=== PATIENT | male | born 1970 | race African-American/Black ===

== ENCOUNTER 2016-11-10 11:32 | Emergency (ER) | payer SELFPAY ==
[2016-11-10 12:54] LABS: Anion Gap 15 mmol/L; BUN/Creatinine Ratio 13.33; Blood Urea Nitrogen 12 mg/dL (9-20); Calcium 9.2 mg/dL (8.4-10.2); Carbon Dioxide 28 mmol/L (22-30); Chloride 99.5 mmol/L (98-107); Glucose 121 mg/dL (75-100); Potassium 4.3 mmol/L (3.6-5.0); Sodium 138 mmol/L (137-145)
--- NOTE | 2016-11-10 12:55 | XRay Report ---
CHEST 2 VIEWS INDICATION: Shortness of breath, central chest pain. COMPARISON: None similar at this institution. FINDINGS: PA and lateral chest radiographs demonstrate normal cardiomediastinal silhouette and clear lungs, given the inspiration. Intact bones. CONCLUSION: No acute disease in the chest. Thank you for the opportunity to participate in this patient's care.
[2016-11-10 12:58] LABS: Albumin 4.3 g/dL (3.9-5); Albumin/Globulin Ratio 1.4 %; Bilirubin,Direct 0.3 mg/dL (0-0.2); Bilirubin,Indirect 0.4 mg/dL; Bilirubin,Total 0.7 mg/dL (0.1-1.2); Total Protein 7.3 g/dL (6.3-8.2)
[2016-11-10 13:24] LABS: Basophils % (Auto) 0.4 % (0.0-1.8); Eosinophils % (Auto) 1.6 % (0.0-4.3); Hematocrit 45.7 % (35.5-45.6); Hemoglobin 15.3 gm/dl (11.8-15.2); Mean Corpuscular HGB Conc 34 % (32-34); Mean Corpuscular Hemoglobin 30 pg (28-32); Mean Corpuscular Volume 89 fl (84-94); Platelet Count 244 K/mm3 (140-440); Red Blood Count 5.15 M/mm3 (3.65-5.03); Red Cell Distribution Width 12.9 % (13.2-15.2); White Blood Count 14.5 K/mm3 (4.5-11.0)
[2016-11-10] MEDS ORDERED: SUBLIMAZE IV ONE (20:51)
[2016-11-10] MEDS ORDERED: ZOFRAN IV ONE (20:51)
[2016-11-10] MEDS ORDERED: PEPCID IV ONE (20:53)
--- NOTE | 2016-11-10 20:57 | Emergency Department Report ---
HPI - General Chief Complaint: Chest Pain Time Seen by Provider: 11/10/16 20:44 - HPI HPI: Room 8 The patient is a 46-year-old male presenting with a chief complaint of abdominal pain. The patient states his symptoms began this morning at 11:00. The patient states 1 hour prior to finishing breakfast which consisted of grits , eggs and sausage. Patient states the pain radiates to his right back. Patient denies nausea vomiting or diarrhea. Patient denies fever. Patient came to the ED via ambulance. The patient states she has had similar episodes in the past after eating or late at night Location: Epigastric Duration: Constant since 11:00 Quality: Squeezing Severity: 12/23 Modifying factors: [see above] Context: [see above] Mode of transportation: [not driving] ED Past Medical Hx - Past Medical History Previous Medical History?: No - Surgical History Past Surgical History?: No - Family History Family history: no significant - Social History Smoking Status: Never Smoker Substance Use Type: None - Medications Home Medications: Home Medications Medication Instructions Recorded Confirmed Last Taken Type Dicyclomine [Bentyl] 20 mg PO QID #20 bottle 11/10/16 Unknown Rx HYDROcodone/APAP 5-325 [[place] 1 - 2 each PO Q6HR PRN #20 tablet 11/10/16 Unknown Rx 5/325] Levofloxacin [Levaquin TAB] 500 mg PO QDAY #7 tablet 11/10/16 Unknown Rx ED Review of Systems ROS: Stated complaint: ABD PAIN Other details as noted in HPI Comment: All other systems reviewed and negative Constitutional: diaphoresis. denies: chills, fever Eyes: denies: eye pain, eye discharge, vision change ENT: denies: ear pain, throat pain Respiratory: shortness of breath Cardiovascular: chest pain Endocrine: no symptoms reported Gastrointestinal: abdominal pain. denies: nausea, vomiting, diarrhea Genitourinary: denies: urgency, dysuria Musculoskeletal: back pain Skin: denies: rash, lesions Neurological: denies: headache, weakness, paresthesias Psychiatric: denies: anxiety, depression Hematological/Lymphatic: denies: easy bleeding, easy bruising Physical Exam - Physical Exam Vital Signs: Vital Signs 11/10/16 11/10/16 11/10/16 12:01 19:10 19:15 Temperature 98.7 F Pulse Rate 57 L 67 62 Respiratory 16 14 Rate Blood Pressure 113/77 131/82 O2 Sat by Pulse 100 100 Oximetry 11/10/16 11/10/16 19:30 19:46 Temperature Pulse Rate 58 L Respiratory 17 18 Rate Blood Pressure 121/75 O2 Sat by Pulse 100 100 Oximetry Physical Exam: GENERAL: The patient is well-developed well-nourished male lying on stretcher not appearing to be in acute distress. [] HEENT: Normocephalic. Atraumatic. Extraocular motions are intact. Patient has moist mucous membranes. NECK: Supple. Trachea midline CHEST/LUNGS: Clear to auscultation. There is no respiratory distress noted. HEART/CARDIOVASCULAR: Regular. There is no tachycardia. There is no gallop rub or murmur. ABDOMEN: Abdomen is soft, with epigastric discomfort to palpation. Mild discomfort to palpation in the right upper quadrant. Absent Wil[place]. Patient has normal bowel sounds. There is no abdominal distention. SKIN: There is no rash. There is no edema. There is no diaphoresis. NEURO: The patient is awake, alert, and oriented. The patient is cooperative. The patient has normal speech MUSCULOSKELETAL: There is no evidence of acute injury. ED Course Vital Signs 11/10/16 11/10/16 11/10/16 12:01 19:10 19:15 Temperature 98.7 F Pulse Rate 57 L 67 62 Respiratory 16 14 Rate Blood Pressure 113/77 131/82 O2 Sat by Pulse 100 100 Oximetry 11/10/16 11/10/16 19:30 19:46 Temperature Pulse Rate 58 L Respiratory 17 18 Rate Blood Pressure 121/75 O2 Sat by Pulse 100 100 Oximetry - Consultations Consultation #1: 11/10/16 22:45 Surgery paged 11/10/16 22:[address] Santa-states the patient can follow-up in the office Sunday or Sunday. Recommends giving the patient prescription for Levaquin and a pain medication. ED Medical Decision Making - Lab Data Result diagrams: 11/10/16 13:03 11/10/16 12:18 Laboratory Tests 11/10/16 11/10/16 11/10/16 12:18 12:18 12:18 WBC RBC Hgb Hct MCV MCH MCHC RDW Plt Count Lymph % (Auto) [place] % (Auto) Eos % (Auto) Baso % (Auto) Lymph # [place] # Eos # Baso # Seg Neutrophils % Seg Neutrophils # Sodium 138 Potassium 4.3 Chloride 99.5 Carbon Dioxide 28 Anion Gap 15 BUN 12 Creatinine 0.9 Estimated GFR > 60 BUN/Creatinine Ratio 13.33 Glucose 121 H Calcium 9.2 Total Bilirubin 0.70 Direct Bilirubin 0.3 H Indirect Bilirubin 0.4 AST 79 H ALT 64 H Alkaline Phosphatase 68 Troponin T < 0.010 Total Protein 7.3 Albumin 4.3 Albumin/Globulin Ratio 1.4 Lipase 54 11/10/16 13:03 WBC 14.5 H RBC 5.15 H Hgb 15.3 H Hct 45.7 H MCV 89 MCH 30 MCHC 34 RDW 12.9 L Plt Count 244 Lymph % (Auto) 8.5 L [place] % (Auto) 4.4 Eos % (Auto) 1.6 Baso % (Auto) 0.4 Lymph # 1.2 [place] # 0.6 Eos # 0.2 Baso # 0.1 Seg Neutrophils % 85.1 H Seg Neutrophils # 12.3 H Sodium Potassium Chloride Carbon Dioxide Anion Gap BUN Creatinine Estimated GFR BUN/Creatinine Ratio Glucose Calcium Total Bilirubin Direct Bilirubin Indirect Bilirubin AST ALT Alkaline Phosphatase Troponin T Total Protein Albumin Albumin/Globulin Ratio Lipase - EKG Data -: EKG Interpreted by Me EKG shows normal: sinus rhythm Rate: normal - EKG Data When compared to previous EKG there are: previous EKG unavailable Interpretation: nonspecific ST-T wave nicolette (T-wave inversion in lead 3) - Radiology Data Radiology results: report reviewed (right upper quadrant ultrasound), image reviewed (chest x-ray, right upper quadrant ultrasound) interpreted by me: Chest x-ray-no focal infiltrates, no pneumothorax Right upper quadrant ultrasound (read by radiologist)-there is a moderate size 1.4 cm stone in the gallbladder and there also a small to moderate amount of sludge in the gallbladder. However there is no ultrasound evidence of gallbladder wall thickening and common bile duct is at the upper limits of normal. Yet - Differential Diagnosis ACS, cholecystitis, pancreatitis, Critical care attestation.: If time is entered above; I have spent that time in minutes in the direct care of this critically ill patient, excluding procedure time. ED Disposition Clinical Impression: Symptomatic cholelithiasis, Abdominal pain Disposition: DISCHARGED TO HOME OR SELFCARE Is pt being admited?: No Does the pt Need Aspirin: No Condition: Stable Instructions: Biliary Colic (ED) Additional Instructions: Return to the emergency department immediately should you develop worsening symptoms, fever, inability to tolerate food or liquid or any other concerns. Prescriptions: Dicyclomine [Bentyl] 20 mg PO QID #20 bottle HYDROcodone/APAP 5-325 [[place] 5/325] 1 - 2 each PO Q6HR PRN #20 tablet PRN Reason: Pain Levofloxacin [Levaquin TAB] 500 mg PO QDAY #7 tablet Referrals: PRIMARY CAREMD [Primary Care Provider] - 3-5 Days DONTE SANTA MD [Staff Physician] - 11/13/16 Time of Disposition: 22:52
--- NOTE | 2016-11-10 22:29 | Ultrasound Report ---
FINAL REPORT PROCEDURE: US ABDOMEN LIMITED TECHNIQUE: Real-time sonography was performed of the right upper quadrant gallbladder region with image documentation. CPT 01003 HISTORY: abdominal pain COMPARISON: No prior studies are available for comparison. FINDINGS: There is a 1.4 centimeter stone in the gallbladder. There is also a small to moderate amount of sludge in the gallbladder. However there is no gallbladder wall thickening. The gallbladder wall is normal measuring 1.8 millimeters. The common bile duct is at the upper limits of normal measuring 7.2 millimeters. The liver shows mild increased echogenicity. This is nonspecific but can seen in fatty infiltration. The visualized portions of the liver show no ultrasound abnormality otherwise. The pancreas shows no ultrasound abnormality. The right kidney measures 11.3 centimeters in length and shows no ultrasound abnormality. The left kidney and the spleen are not evaluated on this limited right upper quadrant gallbladder region only ultrasound. IMPRESSION: 1. There is a moderate size 1.4 centimeter stone in the gallbladder and there also a small to moderate amount of sludge in the gallbladder. However there is no ultrasound evidence of gallbladder wall thickening and the common bile duct is at the upper limits of normal in size. 2. Mild increased echogenicity of the liver is nonspecific but could indicate mild fatty infiltration.
[2016-11-10 23:05] VITALS: BP 114/76
== END 2016-11-10 23:06 | disposition home or self-care (01) ==
LOC: ED 11:32
DX: K80.20 Calculus of gallbladder without cholecystitis without obstruction (principal)
CPT/HCPCS: 36415; 71020; 76705; 80048; 80074; 83690; 84484; 85025; 93005; 93010; 96374; 96375; 99284; J2405; J3010